=== PATIENT | female | born 1990 | race Caucasian/White ===

== ENCOUNTER 2017-09-09 18:40 | Emergency (ER) | payer MEDICAID ==
[2017-09-09 19:06] LABS: APPEARANCE CLEAR (CLEAR); BILIRUBIN NEGATIVE (NEGATIVE); COLOR YELLOW (YELLOW); GLUCOSE NEGATIVE (NEGATIVE); KETONE SMALL mg/dL (NEGATIVE); NITRITE NEGATIVE (NEGATIVE); PROTEIN NEGATIVE (NEGATIVE); UROBILINOGEN NORMAL (NORMAL)
[2017-09-09 19:08] LABS: BASOPHILS 0.2 % (0-2); EOSINOPHILS 4.1 % (0-7); HEMATOCRIT 39.9 % (36.0-48.0); HEMOGLOBIN 13.4 g/dL (12-16); IMMATURE GRANULOCYTES 0.2 % (0-5); LYMPHOCYTES 37.5 % (15-50); MCH 30.9 pg (26.0-34.0); MCHC 33.6 g/dL (31.0-37.0); MCV 91.9 fL (80.0-100.0); MEAN PLATELET VOLUME 9.6 fL (7.4-10.4); MONOCYTES 4.9 % (2-11); NEUTROPHILS 53.1 % (40-80); PLATELET COUNT 286 10x3/uL (130-400); RBC 4.34 10x6/uL (4.00-5.40); RDW 13.1 % (11.5-14.5); WBC 8.8 10x3/uL (4.8-10.8)
[2017-09-09 19:20] LABS: ALBUMIN 4.5 g/dL (3.4-5.0); ALKALINE PHOSPHATASE 76 U/L (46-116); ALT (SGPT) 26 U/L (10-68); BILIRUBIN - TOTAL 0.53 mg/dL (0.2-1.3); CALC OSMOLALITY 277 mosm/kg (275-300); CALCIUM 9.1 mg/dL (8.5-10.1); CARBON DIOXIDE 24.3 mmol/L (21.0-32.0); CHLORIDE - SERUM 102 mmol/L (98-107); CREATININE - SERUM 0.9 mg/dL (0.6-1.3); GLUCOSE 75 mg/dL (74-106); POTASSIUM - SERUM 3.8 mmol/L (3.5-5.1); PROTEIN - SERUM 8.1 g/dL (6.4-8.2); SODIUM 140 mmol/L (136-145); UREA NITROGEN 12 mg/dL (7-18); eGFR NON AFRICAN AMERICAN 81 mL/min (90-120)
[2017-09-09 19:46] LABS: HCG SERUM NEGATIVE (NEGATIVE)
[2017-09-14 03:11] LABS: CHLAMYDIA TRACHOMATIS, NAA Negative (Negative)
== END 2017-09-09 22:26 | disposition home or self-care (01) ==
LOC: D.ER 18:40
PROVIDERS: Family Medicine; Physician Assistant Medical
DX: K52.9 Noninfective gastroenteritis and colitis, unspecified (principal); Z86.59 Personal history of other mental and behavioral disorders; Z85.41 Personal history of malignant neoplasm of cervix uteri; F17.200 Nicotine dependence, unspecified, uncomplicated

== ENCOUNTER 2017-09-16 17:58 | Emergency (ER) | payer MEDICAID ==
[2017-09-16 18:35] LABS: APPEARANCE CLEAR (CLEAR); COLOR YELLOW (YELLOW); NITRITE NEGATIVE (NEGATIVE); PROTEIN NEGATIVE (NEGATIVE); SPECIFIC GRAVITY 1.005 (1.005-1.020)
[2017-09-16 18:36] LABS: BILIRUBIN NEGATIVE (NEGATIVE); GLUCOSE NEGATIVE (NEGATIVE); KETONE NEGATIVE (NEGATIVE); UROBILINOGEN NORMAL (NORMAL)
[2017-09-16 18:41] LABS: BASOPHILS 0.3 % (0-2); EOSINOPHILS 1.8 % (0-7); HEMATOCRIT 38.7 % (36.0-48.0); HEMOGLOBIN 13.1 g/dL (12-16); IMMATURE GRANULOCYTES 0.2 % (0-5); LYMPHOCYTES 37.2 % (15-50); MCH 31.3 pg (26.0-34.0); MCHC 33.9 g/dL (31.0-37.0); MCV 92.4 fL (80.0-100.0); MEAN PLATELET VOLUME 9.7 fL (7.4-10.4); MONOCYTES 3.8 % (2-11); NEUTROPHILS 56.7 % (40-80); PLATELET COUNT 274 10x3/uL (130-400); RBC 4.19 10x6/uL (4.00-5.40); RDW 13.7 % (11.5-14.5); WBC 10.8 10x3/uL (4.8-10.8)
[2017-09-16 19:03] LABS: ALKALINE PHOSPHATASE 59 U/L (46-116); ALT (SGPT) 23 U/L (10-68); BILIRUBIN - TOTAL 0.25 mg/dL (0.2-1.3); CALC OSMOLALITY 277 mosm/kg (275-300); CALCIUM 8.7 mg/dL (8.5-10.1); CARBON DIOXIDE 24.9 mmol/L (21.0-32.0); CHLORIDE - SERUM 103 mmol/L (98-107); CREATININE - SERUM 0.9 mg/dL (0.6-1.3); GLUCOSE 92 mg/dL (74-106); POTASSIUM - SERUM 3.5 mmol/L (3.5-5.1); PROTEIN - SERUM 7.6 g/dL (6.4-8.2); SODIUM 139 mmol/L (136-145); UREA NITROGEN 13 mg/dL (7-18); eGFR NON AFRICAN AMERICAN 81 mL/min (90-120)
[2017-09-16 19:46] LABS: AMYLASE - SERUM 51 U/L (25-115); LIPASE 101 U/L (73-393)
== END 2017-09-16 23:50 | disposition home or self-care (01) ==
LOC: D.ER 17:58
PROVIDERS: Family Medicine
DX: K59.00 Constipation, unspecified (principal); Z85.41 Personal history of malignant neoplasm of cervix uteri; F17.200 Nicotine dependence, unspecified, uncomplicated

== ENCOUNTER 2017-10-16 03:47 | Emergency (ER) | payer MEDICAID ==
[2017-10-16 04:22] LABS: APPEARANCE CLEAR (CLEAR); BILIRUBIN NEGATIVE (NEGATIVE); COLOR YELLOW (YELLOW); GLUCOSE NEGATIVE (NEGATIVE); KETONE NEGATIVE (NEGATIVE); NITRITE NEGATIVE (NEGATIVE); PROTEIN NEGATIVE (NEGATIVE); SPECIFIC GRAVITY 1.015 (1.005-1.020); UROBILINOGEN NORMAL (NORMAL)
[2017-10-16 04:29] LABS: BASOPHILS 0.3 % (0-2); EOSINOPHILS 5.2 % (0-7); HEMATOCRIT 37.3 % (36.0-48.0); HEMOGLOBIN 12.6 g/dL (12-16); IMMATURE GRANULOCYTES 0.3 % (0-5); LYMPHOCYTES 30.3 % (15-50); MCH 31.3 pg (26.0-34.0); MCHC 33.8 g/dL (31.0-37.0); MCV 92.6 fL (80.0-100.0); MEAN PLATELET VOLUME 9.2 fL (7.4-10.4); MONOCYTES 4.7 % (2-11); NEUTROPHILS 59.2 % (40-80); PLATELET COUNT 292 10x3/uL (130-400); RBC 4.03 10x6/uL (4.00-5.40); WBC 7.3 10x3/uL (4.8-10.8)
[2017-10-16 04:36] LABS: ALBUMIN 3.3 g/dL (3.4-5.0); ALKALINE PHOSPHATASE 94 U/L (46-116); ALT (SGPT) 24 U/L (10-68); AMYLASE - SERUM 59 U/L (25-115); CALC OSMOLALITY 274 mosm/kg (275-300); CALCIUM 8.8 mg/dL (8.5-10.1); CARBON DIOXIDE 26.5 mmol/L (21.0-32.0); CHLORIDE - SERUM 105 mmol/L (98-107); CREATININE - SERUM 0.7 mg/dL (0.6-1.3); GLUCOSE 84 mg/dL (74-106); LIPASE 96 U/L (73-393); PROTEIN - SERUM 6.9 g/dL (6.4-8.2); SODIUM 139 mmol/L (136-145); UREA NITROGEN 7 mg/dL (7-18); eGFR NON AFRICAN AMERICAN > 90 mL/min (90-120)
[2017-10-16 04:37] LABS: UDS - AMPHET NEGATIVE QUAL (NEGATIVE); UDS - BARB NEGATIVE QUAL (NEGATIVE); UDS - BENZO POSITIVE QUAL (NEGATIVE); UDS - COCAINE NEGATIVE QUAL (NEGATIVE); UDS - OPIATE POSITIVE QUAL (NEGATIVE); UDS - PCP NEGATIVE QUAL (NEGATIVE); UDS - THC NEGATIVE QUAL (NEGATIVE)
== END 2017-10-16 06:50 | disposition home or self-care (01) ==
LOC: D.ER 03:47
PROVIDERS: Family Medicine
DX: K59.00 Constipation, unspecified (principal); R10.9 Unspecified abdominal pain; Z85.41 Personal history of malignant neoplasm of cervix uteri

== ENCOUNTER → 2017-10-23 12:29 | Outpatient (CLI) | payer MEDICAID | END | disposition home or self-care (01) | LOC: D.NM 10-18 13:00 | DX: R10.9 Unspecified abdominal pain (principal) ==

== ENCOUNTER 2017-12-04 21:09 | Emergency (ER) | payer MEDICAID ==
[~2017-12-04] VITALS: Ht 170.2 cm; Wt 52.3 kg
[2017-12-04 21:13] VITALS: Ht 170.2 cm; Wt 52.3 kg
[2017-12-04 22:10] LABS: ALKALINE PHOSPHATASE 78 U/L (46-116); ALT (SGPT) 32 U/L (10-68); AMYLASE - SERUM 47 U/L (25-115); BILIRUBIN - TOTAL 0.08 mg/dL (0.2-1.3); CALC OSMOLALITY 276 mosm/kg (275-300); CALCIUM 8.6 mg/dL (8.5-10.1); CARBON DIOXIDE 28.4 mmol/L (21.0-32.0); CHLORIDE - SERUM 106 mmol/L (98-107); CREATININE - SERUM 0.8 mg/dL (0.6-1.3); GLUCOSE 75 mg/dL (74-106); LIPASE 85 U/L (73-393); POTASSIUM - SERUM 3.9 mmol/L (3.5-5.1); PROTEIN - SERUM 6.7 g/dL (6.4-8.2); SODIUM 140 mmol/L (136-145); UREA NITROGEN 11 mg/dL (7-18); eGFR NON AFRICAN AMERICAN > 90 mL/min (90-120)
[2017-12-04 22:16] LABS: APPEARANCE CLEAR (CLEAR); BILIRUBIN NEGATIVE (NEGATIVE); COLOR YELLOW (YELLOW); GLUCOSE NEGATIVE (NEGATIVE); KETONE NEGATIVE (NEGATIVE); NITRITE NEGATIVE (NEGATIVE); PROTEIN NEGATIVE (NEGATIVE); SPECIFIC GRAVITY 1.015 (1.005-1.020); UROBILINOGEN NORMAL (NORMAL)
[2017-12-04 22:20] LABS: BACTERIA FEW /hpf (NONE SEEN); WHITE CELLS - URINE 0-5 /hpf (0-5)
[2017-12-04 22:22] LABS: HCG SERUM NEGATIVE (NEGATIVE)
[2017-12-04 22:27] LABS: BASOPHILS 0.5 % (0-2); EOSINOPHILS 0.6 % (0-7); HEMOGLOBIN 12.6 g/dL (12-16); IMMATURE GRANULOCYTES 3.1 % (0-5); LYMPHOCYTES 36.9 % (15-50); MCH 30.8 pg (26.0-34.0); MCHC 33.2 g/dL (31.0-37.0); MCV 92.9 fL (80.0-100.0); MEAN PLATELET VOLUME 8.8 fL (7.4-10.4); MONOCYTES 6.9 % (2-11); PLATELET COUNT 373 10x3/uL (130-400); RBC 4.09 10x6/uL (4.00-5.40); RDW 13.2 % (11.5-14.5); WBC 10.6 10x3/uL (4.8-10.8)
[2017-12-05 00:36] VITALS: BP 122/74
== END 2017-12-05 00:37 | disposition home or self-care (01) ==
LOC: D.ER 21:09
PROVIDERS: Family Medicine
DX: R10.9 Unspecified abdominal pain (principal); F17.200 Nicotine dependence, unspecified, uncomplicated

== ENCOUNTER → 2019-05-23 08:42 | Outpatient (CLI) | payer OTHER ==
[2017-12-04 21:13] VITALS: BMI 18.0
== END | disposition home or self-care (01) ==
LOC: D.RAD 08:42 → D.MRI 10:00
PROVIDERS: ATTEND Nurse Practitioner Family
DX: M25.511 Pain in right shoulder (principal); W19.XXXA Unspecified fall, initial encounter

== ENCOUNTER 2019-10-28 11:30 | Emergency (ER) | payer MEDICAID ==
[~2019-10-28] VITALS: Ht 170.2 cm; Wt 56.8 kg
[~2019-10-28 11:30] MED LIST: ALBUTEROL2.5 MG/3 M INH; ESTRACE2 MG PO; NORCO-7.51 TAB; PERCOCET 10-321 EAC1 PO; VISTARIL50 MG PO
[2019-10-28 11:41] VITALS: Ht 170.2 cm; Wt 56.8 kg
[2019-10-28 12:31] LABS: BACTERIA FEW /hpf (NEGATIVE); BILIRUBIN NEGATIVE (NEGATIVE); EPITHELIAL CELLS OCC /hpf (0-5); GLUCOSE NEGATIVE (NEGATIVE); KETONE MODERATE mg/dL (NEGATIVE); NITRITE NEGATIVE (NEGATIVE); RED CELLS - URINE RARE /hpf (0-5); SPECIFIC GRAVITY 1.005 (1.005-1.020); UROBILINOGEN NORMAL (NORMAL); WHITE CELLS - URINE 0-5 /hpf (NEGATIVE)
[2019-10-28] MEDS ORDERED: KEFLEX500 MG PO (13:19)
[2019-10-28] MEDS ORDERED: MACROBID100 MG PO (13:19)
[2019-10-28 13:43] LABS: ANION GAP 17.3 mmol/L (8-16); CALCIUM 9.7 mg/dL (8.5-10.1); CARBON DIOXIDE 23.6 mmol/L (21.0-32.0); CREATININE - SERUM 1.2 mg/dL (0.6-1.3); POTASSIUM - SERUM 3.9 mmol/L (3.5-5.1)
[2019-10-28 13:48] LABS: ALBUMIN 4.7 g/dL (3.4-5.0); BILIRUBIN - TOTAL 0.99 mg/dL (0.2-1.3); PROTEIN - SERUM 8.1 g/dL (6.4-8.2)
[2019-10-28 13:50] LABS: BASOPHILS 0.2 % (0-2); EOSINOPHILS 0.7 % (0-7); HEMOGLOBIN 16.5 g/dL (12-16); IMMATURE GRANULOCYTES 0.2 % (0-5); MCH 31.4 pg (26.0-34.0); MCHC 33.7 g/dL (31.0-37.0); MCV 93.2 fL (80.0-100.0); MEAN PLATELET VOLUME 9.4 fL (7.4-10.4); MONOCYTES 7.4 % (2-11); NEUTROPHILS 68.5 % (40-80); RBC 5.26 10x6/uL (4.00-5.40); RDW 12.8 % (11.5-14.5); WBC 8.4 10x3/uL (4.8-10.8)
[2019-10-28 13:55] LABS: PLATELET COUNT 383 10x3/uL (130-400)
[2019-10-28 15:36] VITALS: BP 125/85
== END 2019-10-28 15:35 | disposition home or self-care (01) ==
LOC: D.ER 11:30
PROVIDERS: Family Medicine
DX: N39.0 Urinary tract infection, site not specified (principal); R10.9 Unspecified abdominal pain; Z87.442 Personal history of urinary calculi; R11.2 Nausea with vomiting, unspecified; R30.0 Dysuria

== ENCOUNTER → 2019-11-29 08:42 | Outpatient (CLI) | payer MEDICAID ==
[2019-10-28 11:41] VITALS: BMI 19.6
[~2019-11-29 08:42] MED LIST changes: +KEFLEX500 MG PO; +MACROBID100 MG PO
== END | disposition home or self-care (01) ==
LOC: D.RAD 08:42 → D.MRI 10:00
PROVIDERS: ATTEND Nurse Practitioner Family
DX: M25.511 Pain in right shoulder (principal)

== ENCOUNTER 2019-12-13 11:22 | Day surgery (SDC) | payer MEDICAID ==
[~2019-12-13] VITALS: Ht 170.2 cm; Wt 56.7 kg
--- NOTE | ~2019-12-13 | OP ---
PATIENT NAME: MILANA DOWNS MEDICAL RECORD: [id number] :89 LOCATION:[facility] ADMISSION DATE: SURGEON: RAOUL SALDAÑA DO DATE OF OPERATION: 12/13/2019 PROCEDURE PERFORMED: Right shoulder arthroscopy with rotator cuff repair, biceps tenodesis, and lysis of adhesions. PREOPERATIVE DIAGNOSES: Right shoulder partial rotator cuff tendon tear, SLAP tear. POSTOPERATIVE DIAGNOSES: Right shoulder partial rotator cuff tendon tear, SLAP tear with adhesions in the capsule of the right shoulder. INDICATIONS: Ms. Downs is a 29-year-old female who I had scoped her shoulder that showed a partial tear on her MRI. She failed all nonoperative treatment. This was months ago. Once I got in there, I did not see that it was more than 50% torn and therefore did not do a rotator cuff tendon repair, but I did a distal clavicle excision and subacromial decompression. She did not do well postoperatively and did not move her shoulder much and developed some scar tissue or adhesions if you will. She was holding one of her children and felt a pop. She returned and got another MRI which showed a more extensive partial tear of the supraspinatus. I told her that we could put a patch on it, a Regeneten patch, and that I probably would do bicep tenodesis at the same time just to avoid any pain generators and she was okay with that. I did not know about the scar tissue when I initially talked to her, She was aware of the risks including infection, bleeding, damage to nerves and vessels, continued pain, frozen shoulder, need for further surgery, and even and she signed the consent. SURGEON: aRoul Saldaña DO DESCRIPTION OF SURGERY: The patient was given a block by anesthesia in the preoperative area, taken to the operating suite, laid in the left lateral decubitus position with the right shoulder up. She was given 900 mg of clindamycin preoperatively. She was sedated and LMA was placed. The right shoulder was then prepped and draped in sterile fashion. A time-out was performed and everyone was in agreement with the correct side, site, patient, and procedure. I then inflated the joint with 6 mL of normal saline and established posterior portal with an 11-blade scalpel. I finally got to my shoulder joint. It was very difficult. I then established anterior portal, two of them, with an 18-gauge spinal needle and 11-blade scalpel due to the scar tissue. I then brought in a burner and a shaver and resected all the rotator interval scar tissue, opening it up nicely. There was no subscapularis tear. There was a partial tear of the supraspinatus, although it was right at 50%. I then did a biceps tenotomy and marked the rotator cuff tendon tear. I went to subacromial space and removed some of the bursa. I then opened the lateral incision where the eddie was for the rotator cuff tendon tear. With 15-blade scalpel and careful dissection, I went down to the tear and then put a Regeneten patch on after removing the bursa and stapled this it into place. I then went to the anterior humerus, made an incision, retrieved the long head of biceps tendon, and put a 2.9 JuggerLoc unicortical unicortical stitch anchor in with a loop and looped tendon through it and cinched it down to the humerus. I then cut the sutures and used a free needle with one end of the sutures sutured back to the tendon twice and tied it down. I cut the excess tendon and sutured. I OPERATIVE REPORT [id number] MILANA DOWNS then irrigated with the scope water in the rotator cuff tendon site and the biceps tendon site. This was then closed by Geovanni Osorio, certified surgical aides teacher, with 2-0 Vicryl in inverted fashion, 4-0 Monocryl ran on the skin for the biceps tendon site and the rotator cuff tendon site and then closed the anterior and posterior portal with 4-0 Monocryl in inverted interrupted fashion. I then covered it all in Dermabond, Telfa, and Tegaderm. She was awakened and taken to recovery in stable condition. BLOOD LOSS: Minimal. COMPLICATIONS: None. NTS:[id number] Voice Confirmation ID: [id number] DOCUMENT ID: [id number] RAOUL SALDAÑA DO CC: [id number] DICTATION DATE: 12/13/191529 GENERAL EXPEDITOR: 12/13/192108 [facility] 12/13/19 [facility] [address] [place] [address]
[~2019-12-13 11:22] MED LIST changes: +HYDROCODON-ACE1 EAC2 PO
[2019-12-13 11:46] LABS: HEMATOCRIT 48.5 % (36.0-48.0); HEMOGLOBIN 16.1 g/dL (12-16); MCH 30.8 pg (26.0-34.0); MCHC 33.2 g/dL (31.0-37.0); MCV 92.7 fL (80.0-100.0); MEAN PLATELET VOLUME 9.3 fL (7.4-10.4); RBC 5.23 10x6/uL (4.00-5.40); RDW 13.2 % (11.5-14.5); WBC 5.7 10x3/uL (4.8-10.8)
[2019-12-13 12:33] VITALS: BP 139/76; Ht 170.2 cm; Wt 56.7 kg
--- NOTE | 2019-12-13 15:58 | NUR ---
ICE APPLIED TO R.SHOULDER. SLING IN PLACE.
--- NOTE | 2019-12-13 16:33 | NUR ---
1630-RECD TO ROOM FROM PACU. ALERT. COMPLAINS OF RIGHT SHOULDER PAIN RATED 10. DILLAN WILL CHECK WITH ANESTHESIA ABOUT REBLOCK. IV PATENT. R SHOULDER DRESSINGS WITH SCANT AMOUNT SEROSANGENOUS DRAINIAGE. ICE AND SLING TO R SHOULDER/ARM. 1635-UP TO BATHROOM WITH ASSIST, VOIDS.
--- NOTE | 2019-12-13 19:33 | NUR ---
1800 IV REMOVED AND INSTRUCTIONSG GIVEN SMALL AMT OF DRAINGE TO POSTERIOR RIGHT SHOULDER. PALP PULSE. SLING ON RIGHT ARM. PAIN TO INNER RIGHT ARM NEAR AXILLA. ABLE TO WIGGLE FINGERS AND HAS FULL SENSATION TO ALL DIGITS ON RIGHT HAND. PAIN STARTING TO GET BETTER AFTER 4MG OF DILAUDID GIVEN AT 1700. PTS SISTER GIVEN INSTRUCTIONS INCLUDING PENDULUM EXERCISE TO START TOMORROW.
== END 2019-12-13 18:10 | disposition home or self-care (01) ==
LOC: D.OPS 11:22 → D.PAN 11:55 → D.OPS 13:00
PROVIDERS: Anesthesiology; ATTEND Orthopaedic Surgery
DX: M75.101 Unspecified rotator cuff tear or rupture of right shoulder, not specified as traumatic (principal); S43.431A Superior glenoid labrum lesion of right shoulder, initial encounter; X58.XXXA Exposure to other specified factors, initial encounter

== ENCOUNTER 2019-12-30 19:06 | Emergency (ER) | payer MEDICAID ==
[~2019-12-30] VITALS: Ht 170.2 cm; Wt 56.8 kg
[2019-12-30 19:14] VITALS: Ht 170.2 cm; Wt 56.8 kg
[2019-12-30] MEDS ORDERED: [UNRECOGNIZED DRUG - OTHER] (19:17)
[2019-12-30] MEDS ORDERED: TESTOSTERONE INJ (19:17)
[2019-12-30 19:42] LABS: BASOPHILS 0.7 % (0-2); EOSINOPHILS 7.2 % (0-7); HEMATOCRIT 41.3 % (36.0-48.0); HEMOGLOBIN 13.6 g/dL (12-16); IMMATURE GRANULOCYTES 0.1 % (0-5); LYMPHOCYTES 39.6 % (15-50); MCH 30.2 pg (26.0-34.0); MCHC 32.9 g/dL (31.0-37.0); MCV 91.8 fL (80.0-100.0); MONOCYTES 8.1 % (2-11); NEUTROPHILS 44.3 % (40-80); PLATELET COUNT 343 10x3/uL (130-400); RDW 13.3 % (11.5-14.5); WBC 6.9 10x3/uL (4.8-10.8)
[2019-12-30 20:00] LABS: APTT 28.7 SECONDS (22.8-39.4); INR 1.04 (0.85-1.17); PROTIME 13.6 SECONDS (11.6-15.0)
[2019-12-30 20:01] LABS: D-DIMER-QUANTITATIVE 0.41 ug/mLFEU (0.20-0.54)
[2019-12-30 20:12] LABS: ANION GAP 8.6 mmol/L (8-16); CALCIUM 8.4 mg/dL (8.5-10.1); POTASSIUM - SERUM 3.6 mmol/L (3.5-5.1)
[2019-12-30 20:17] LABS: ALBUMIN 3.5 g/dL (3.4-5.0); BILIRUBIN - TOTAL 0.33 mg/dL (0.2-1.3); PROTEIN - SERUM 6.5 g/dL (6.4-8.2)
[2019-12-30 21:06] VITALS: BP 142/89
== END 2019-12-30 21:06 | disposition home or self-care (01) ==
LOC: D.ER 19:06
PROVIDERS: Emergency Medicine
DX: M25.531 Pain in right wrist (principal); R22.31 Localized swelling, mass and lump, right upper limb; J45.909 Unspecified asthma, uncomplicated; K21.9 Gastro-esophageal reflux disease without esophagitis; Z72.0 Tobacco use

== ENCOUNTER 2020-11-16 21:08 | Emergency (ER) | payer MEDICAID ==
[~2020-11-16] VITALS: Ht 170.2 cm; Wt 55.0 kg
[~2020-11-16 21:08] MED LIST changes: +DOTTI; +TESTOSTERONE INJ; +[UNRECOGNIZED DRUG - OTHER]
[2020-11-16 21:20] VITALS: Ht 170.2 cm; Wt 55.0 kg
[2020-11-16] MEDS ORDERED: BUSPAR10 MG PO (21:21)
[2020-11-16] MEDS ORDERED: ELAVIL10 MG PO (21:21)
[2020-11-16 21:48] LABS: BASOPHILS 0.8 % (0-2); EOSINOPHILS 0.5 % (0-7); HEMATOCRIT 46.6 % (36.0-48.0); HEMOGLOBIN 15.6 g/dL (12-16); LYMPHOCYTES 22.8 % (15-50); MCH 30.1 pg (26.0-34.0); MCHC 33.4 g/dL (31.0-37.0); MEAN PLATELET VOLUME 7.1 fL (7.4-10.4); MONOCYTES 6.2 % (2-11); NEUTROPHILS 69.7 % (40-80); PLATELET COUNT 391 10x3/uL (130-400); RBC 5.17 10x6/uL (4.00-5.40); RDW 12.8 % (11.5-14.5); WBC 12.2 10x3/uL (4.8-10.8)
[2020-11-16 21:58] LABS: BILIRUBIN NEGATIVE (NEGATIVE); KETONE TRACE mg/dL (< 1+); NITRITE NEGATIVE (NEGATIVE); PH 7.5 (5.0-8.0); UROBILINOGEN NORMAL mg/dL (< 2)
[2020-11-16 21:59] LABS: CALC OSMOLALITY 279 mosm/kg (275-300); CALCIUM 9.3 mg/dL (8.5-10.1); CARBON DIOXIDE 26.7 mmol/L (21.0-32.0); CHLORIDE - SERUM 102 mmol/L (98-107); CREATININE - SERUM 1.1 mg/dL (0.6-1.3); GLUCOSE 111 mg/dL (74-106); POTASSIUM - SERUM 3.8 mmol/L (3.5-5.1); SODIUM 140 mmol/L (136-145); UREA NITROGEN 12 mg/dL (7-18); eGFR NON AFRICAN AMERICAN 63 mL/min (90-120)
[2020-11-16 22:08] LABS: ALBUMIN 4.7 g/dL (3.4-5.0); ALKALINE PHOSPHATASE 90 U/L (30-120); ALT (SGPT) 47 U/L (10-68); AMYLASE - SERUM 67 U/L (25-115); BILIRUBIN - TOTAL 0.45 mg/dL (0.2-1.3); LIPASE 106 U/L (73-393); PROTEIN - SERUM 8.1 g/dL (6.4-8.2); TROPONIN-I < 0.017 ng/mL (0.000-0.060)
[2020-11-17 00:58] LABS: UDS - AMPHET NEGATIVE QUAL (NEGATIVE); UDS - BARB NEGATIVE QUAL (NEGATIVE); UDS - BENZO NEGATIVE QUAL (NEGATIVE); UDS - COCAINE NEGATIVE QUAL (NEGATIVE); UDS - OPIATE NEGATIVE QUAL (NEGATIVE); UDS - PCP NEGATIVE QUAL (NEGATIVE); UDS - THC NEGATIVE QUAL (NEGATIVE)
[2020-11-17] MEDS ORDERED: LOMOTIL 2.5-0.1 EAC1 PO (03:16)
[2020-11-17] MEDS ORDERED: HYDROCODON-ACE1 EAC7 PO (03:16)
[2020-11-17] MEDS ORDERED: ZOFRAN ODT4 MG/UDTAB PO (03:16)
[2020-11-17 03:27] VITALS: BP 136/79
== END 2020-11-17 03:25 | disposition home or self-care (01) ==
LOC: D.ER 21:08
PROVIDERS: Family Medicine
DX: K52.9 Noninfective gastroenteritis and colitis, unspecified (principal); M54.9 Dorsalgia, unspecified